=== PATIENT | male | born 1995 | race Caucasian/White ===

== ENCOUNTER 2018-04-10 21:07 | Emergency (ER) | payer SELFPAY ==
[~2018-04-10] VITALS: Ht 175.3 cm; Wt 108.0 kg
[2018-04-10 22:33] LABS: microscopic required? NO
[2018-04-10 22:43] LABS: UA SPECIFIC GRAVITY 1.025 (1.005-1.035); urine erythrocyte NEGATIVE (NEGATIVE)
[2018-04-11 01:51] VITALS: BP 147/60
== END 2018-04-11 01:51 | disposition home or self-care (01) ==
LOC: ED 21:07
PROVIDERS: Emergency Medicine
DX: S33.5XXA Sprain of ligaments of lumbar spine, initial encounter (principal); N43.2 Other hydrocele; G89.29 Other chronic pain; X58.XXXA Exposure to other specified factors, initial encounter; Y93.72 Activity, wrestling; Y92.89 Other specified places as the place of occurrence of the external cause; Y99.8 Other external cause status
CPT/HCPCS: Q0092